=== PATIENT | female | born 1990 | race African-American/Black ===

== ENCOUNTER 2018-08-13 12:58 | Emergency (ER) | payer MEDICAID ==
[~2018-08-13] VITALS: Ht 170.2 cm; Wt 59.0 kg
[2018-08-13] MEDS ORDERED: HYDROCODONE/ACETAMINOPHEN 5/325MG TABLET PO ONE (17:00)
[2018-08-13] MEDS ORDERED: FLUORESCEIN SODIUM 1MG/STRIP LEFTEYE ONE ×2 (17:15→18:00)
[2018-08-13] MEDS ORDERED: TETRACAINE 0.5% OPHTH DROPS 4ML LEFTEYE ONE (17:45)
[2018-08-13 18:15] LABS: HCG SCREEN NEGATIVE
[2018-08-13 20:05] VITALS: BP 123/66
== END 2018-08-13 20:07 | disposition home or self-care (01) ==
LOC: ER 12:58
DX: S05.8X2A Other injuries of left eye and orbit, initial encounter (principal); F17.200 Nicotine dependence, unspecified, uncomplicated; Y08.89XA Assault by other specified means, initial encounter; Y93.89 Activity, other specified; Y92.89 Other specified places as the place of occurrence of the external cause; Y99.8 Other external cause status
CPT/HCPCS: 70486; 81025; 84703; 99284

== ENCOUNTER 2019-02-13 05:28 | Emergency (ER) | payer MEDICAID, OTHER ==
[~2019-02-13] VITALS: Ht 167.6 cm; Wt 59.0 kg
[2019-02-13] MEDS ORDERED: ALBUTEROL (0.083%) 2.5MG/3ML NEB HHN STA (06:40)
[2019-02-13] MEDS ORDERED: METHYLPREDNISOLONE SOD SUCC 125 MG/2 ML VIAL IV STA (06:40)
[2019-02-13] MEDS ORDERED: IPRATROPIUM BROMIDE (0.02%) 0.5MG/2.5ML NEB HHN STA (06:40)
[2019-02-13] MEDS ORDERED: ALBUTEROL (0.083%) 2.5MG/3ML NEB ONE ×2 (07:27→07:28)
[2019-02-13 08:37] VITALS: BP 128/74
== END 2019-02-13 08:39 | disposition home or self-care (01) ==
LOC: ER 06:44
DX: R05 Cough (principal); J45.901 Unspecified asthma with (acute) exacerbation; F17.210 Nicotine dependence, cigarettes, uncomplicated
CPT/HCPCS: 71045; 81025; 94640; 96374; 99283; J2930; J7611; Z7610

== ENCOUNTER 2021-02-17 14:23 | Emergency (ER) | payer OTHER ==
[~2021-02-17] VITALS: Ht 167.6 cm; Wt 59.0 kg
[2021-02-17 14:35] VITALS: BP 107/70
== END 2021-02-17 18:45 | disposition left against medical advice (07) ==
LOC: ER 14:23
DX: Z53.21 Procedure and treatment not carried out due to patient leaving prior to being seen by health care provider (principal)